=== PATIENT | female | born 1940 | race Hispanic/Latino ===

== ENCOUNTER 2018-11-10 17:28 | Inpatient (IN) | payer OTHER ==
[~2018-11-10] VITALS: Ht 149.9 cm; Wt 72.6 kg
[~2018-11-10 17:28] MED LIST: ALLEGRA PO; ASPIR 8181 MG PO; AZO CRANBERRY1 EAC1 PO; D3; HEMATINIC-VITA1 EACH PO; LASIX20 MG PO; LOPID600 MG PO; LORTAB 7.5-5001 EACH PO; METFORMIN HCL500 MG PO; OMEPRAZOLE40 MG OD; OXYBUTYNIN CHLO15 MG PO; POTASSIUM CHLO10 MEQ PO; SUPER B COMPLE150 MG PO; TYLENOL PO; VIACTIV SOFT C1 EACH PO; WELCHOL3.75 GM PO; ZESTRIL20 MG PO
[2018-11-10] MEDS ORDERED: SODIUM CHLORIDE 0.9% 1000ML 1,000 ML IV SCH (19:30)
--- NOTE | 2018-11-10 19:45 | NUR ---
RADIOLOGY AT BEDSIDE AT THIS TIME FOR CXR.
[2018-11-10 19:52] LABS: BASOPHILS % 0.1 % (0.0-1.0); EOSINOPHILS % 0.1 % (0.0-6.0); HEMATOCRIT 28.2 % (34.2-44.1); HEMOGLOBIN 9.7 g/dL (12.0-16.0); LYMPHOCYTES # (AUTO) 0.6 (1.0-3.2); LYMPHOCYTES % 3.7 % (18.0-39.1); MEAN CORPUSCULAR HEMOGLOBIN 27.4 pg (28-32); MEAN CORPUSCULAR HGB CONC 34.4 g/dL (31-35); MEAN CORPUSCULAR VOLUME 79.7 fL (81-99); MONOCYTES # (AUTO) 0.6 (0.2-0.8); MONOCYTES % 4.1 % (4.4-11.3); NEUTROPHILS # (AUTO) 14.4 (2.1-6.9); NEUTROPHILS % 91.4 % (38.7-80.0); PLATELET COUNT 198 x10e3/uL (140-360); RED BLOOD COUNT 3.54 x10e6/uL (3.6-5.1); RED CELL DISTRIBUTION WIDTH 14.6 % (11.7-14.4)
[2018-11-10 19:55] LABS: BILIRUBIN,URINE NEGATIVE (NEGATIVE); CLARITY,URINE SL CLOUDY (CLEAR); COLOR,URINE YELLOW (YELLOW); KETONES,URINE NEGATIVE (NEGATIVE); LEUKOCYTE ESTERASE ,URINE SMALL (NEGATIVE); NITRITE,URINE POSITIVE (NEGATIVE); PROTEIN,URINE DIPSTICK 2+ (NEGATIVE); URINE UROBILINOGEN 0.2 mg/dL (0.2 - 1)
[2018-11-10 20:06] LABS: AMORPHOUS SEDIMENT,URINE MODERATE (FEW); BACTERIA,URINE MANY /HPF
[2018-11-10 20:11] LABS: ALANINE AMINOTRANSFERASE 25 IU/L (0-55); ALBUMIN/GLOBULIN RATIO 0.7 (0.8-2.0); ALKALINE PHOSPHATASE 72 IU/L (40-150); ANION GAP 24.5 mmol/L (8-16); BLOOD UREA NITROGEN 52 mg/dL (7-26); BUN/CREATININE RATIO 25 (6-25); CALCIUM 9.7 mg/dL (8.4-10.2); CARBON DIOXIDE 15 mmol/L (22-29); CHLORIDE 89 mmol/L (98-107); CREATININE, SERUM 2.11 mg/dL (0.57-1.11); EST GLOMERULAR FILTRATION RATE 23 ML/MIN (60-); GLUCOSE 138 mg/dL (74-118); POTASSIUM 4.5 mmol/L (3.5-5.1); SODIUM 124 mmol/L (136-145)
--- NOTE | 2018-11-10 20:20 | Diagnostic Imaging Report ---
A single frontal view of the chest. HISTORY: Weakness, bladder infection, dysuria COMPARISON: None available. DISCUSSION: Portable technique, limits sensitivity of the exam. Tubes/Lines: None Lungs and pleura: Low lung volumes result in bibasilar vascular crowding, accentuation of the pulmonary interstitial markings, central pulmonary vasculature, and the cardiac silhouette. Allowing for these limitations, the findings are as follows: Mild retrocardiac atelectasis versus scarring. Mild prominence of the central peribronchial interstitial markings. No definite pleural effusion or pneumothorax is identified. Heart and mediastinum: The cardiomediastinal silhouette appears unremarkable. Bones and soft tissues: Marked narrowing of the right acromiohumeral interval. Partially visualized metallic cervical fixation hardware. IMPRESSION: 1. Left retrocardiac atelectasis versus scarring. Superimposed pneumonia or aspiration may be a consideration given the provided history. 2. Findings which can be seen in the setting of a nonspecific bronchitis. 3. Recommend short term follow up routine PA and lateral chest radiographs, in 6-8 weeks, to evaluate for resolution. Signed by: Dr. Ravi Chery D.O., M.M.M. on 11/10/2018 8:16 PM
[2018-11-10 20:34] LABS: CREATINE KINASE 575 IU/L (29-168)
[2018-11-10] MEDS ORDERED: ONDANSETRON HCL INJ 2MG/ML 2ML 2 MG/ML VIAL IV PRN (21:15)
[2018-11-10] MEDS ORDERED: DEXTROSE 50% SYRINGE 50 ML IV PRN ×2 (21:15)
--- OUTSIDE RECORDS SUMMARY | 2018-11-10 21:23 | XMS REPORT | Summary of Care ---
Author Author [facility] Outpatient Imaging [facility] Outpatient [facility] Address Unknown Phone Unavailable Encounter HQ Cesar_keshawn(FIN) [id number] Date(s): 09/08/18 - 09/08/18 [facility] [address] [facility], [address] [place] [phone] Discharge Disposition: Home or Self Care Attending Physician: Logan Gan MD Referring Physician: Logan Gan MD Vital Signs No data available for this section Problem List Condition Effective Dates Status Health Status Informant Anemia(Confirmed) Resolved Diabetes(Confirmed) Resolved GERD Resolved (gastroesophageal reflux disease)(Confirmed) HLD Resolved (hyperlipidemia)(Con firmed) HTN Resolved (hypertension)(Confi rmed) Hyponatremia(Confirm Resolved ed) Allergies, Adverse Reactions, Alerts Substance Reaction Severity Status cephalexin Active Cipro Active Medications No data available for this section Results No data available for this section Immunizations No data available for this section Procedures Procedure Date Related Diagnosis Body Site Status Abdominal hysterectomy Completed Cholecystectomy Completed Total knee replacement Completed Social History Social History Type Response Smoking Status Never smoker; Exposure to Tobacco Smoke None; Cigarette Smoking Last 365 Days No; Reg Smoking Cessation Counseling No entered on: 06/29/17 Assessment and Plan No data available for this section
--- OUTSIDE RECORDS SUMMARY | 2018-11-10 21:23 | XMS REPORT | Summary of Care ---
Author Author [facility] Organization [facility] Address Unknown Phone Unavailable Encounter SANDRO Mike(MORA) [id number] Date(s): 06/29/17 - 06/29/17 [facility] [address] [place] [address]- [phone] Encounter Diagnosis Encounter for screening for malignant neoplasm of colon (Final) - 07/03/17 Diverticulosis of large intestine without perforation or abscess without bleedin g (Final) - Essential (primary) hypertension (Final) - detention (current) use of oral hypoglycemic drugs (Final) - Chronic pain syndrome (Final) - Type 2 diabetes mellitus with diabetic polyneuropathy (Final) - Hyperlipidemia, unspecified (Final) - Rheumatic mitral stenosis (Final) - Gastro-esophageal reflux disease without esophagitis (Final) - detention (current) use of antithrombotics/antiplatelets (Final) - Discharge Disposition: Home or Self Care Attending Physician: Ravi Hodges MD Referring Physician: Ravi Hodges MD Vital Signs 1 2 3 Most recent to oldest [Reference Range]: 152.4 cm (06/26/17 1:28 PM) Height 131/53 mmHg (06/29/17 8:30 AM) 102/52 mmHg (06/29/17 8:15 AM) 105/57 mmHg (06/29/17 8:00 AM) Blood Pressure [90-140/60-90 mmHg] 20 BRMIN (06/29/17 8:30 AM) 17 BRMIN (06/29/17 8:15 AM) 14 BRMIN (06/29/17 8:00 AM) Respiratory Rate [14-20 BRMIN] 69.545 kg (06/26/17 1:28 PM) Weight 29.94 m2 (06/26/17 1:28 PM) Body Mass Index Problem List Condition Effective Dates Status Health Status Informant Anemia(Confirmed) Resolved Diabetes(Confirmed) Resolved GERD Resolved (gastroesophageal reflux disease)(Confirmed) HLD Resolved (hyperlipidemia)(Con firmed) HTN Resolved (hypertension)(Confi rmed) Hyponatremia(Confirm Resolved ed) Allergies, Adverse Reactions, Alerts Substance Reaction Severity Status cephalexin Active Cipro Active Medications acetaminophen 0 Refill(s) Start Date: 06/29/17 Status: Ordered amLODIPine PO, Daily, 0 Refill(s) Start Date: 06/29/17 Status: Ordered aspirin 0 Refill(s) Start Date: 06/29/17 Stop Date: 06/29/17 Status: Deleted aspirin 81 mg tablet, chewable 81 mg=1 tab, PO, Daily, tab, 0 Refill(s) Start Date: 06/29/17 Status: Ordered atorvastatin 10 mg oral tablet 10 mg=1 tab, PO, Bedtime, # 30 tab, 0 Refill(s) Start Date: 06/29/17 Status: Ordered Calcium 600+D oral tablet 1 tab, PO, BID, 0 Refill(s) Start Date: 06/29/17 Status: Ordered Cranberry oral capsule 0 Refill(s) Start Date: 06/29/17 Status: Ordered furosemide Daily, 0 Refill(s) Start Date: 06/29/17 Status: Ordered gemfibrozil 600 mg oral tablet 600 mg=1 tab, PO, BID, # 180 tab, 0 Refill(s) Start Date: 06/29/17 Status: Ordered glimepiride 2 mg oral tablet 2 mg=1 tab, PO, Breakfast, # 30 tab, 0 Refill(s) Start Date: 06/29/17 Status: Ordered lisinopril PO, Daily, 0 Refill(s) Start Date: 06/29/17 Status: Ordered metFORMIN 500 mg oral tablet 500 mg=1 tab, PO, Before Dinner, # 30 tab, 0 Refill(s) Start Date: 06/29/17 Status: Ordered [place]-3 oral capsule 0 Refill(s) Start Date: 06/29/17 Status: Ordered omeprazole PO, Daily, 0 Refill(s) Start Date: 06/29/17 Status: Ordered oxybutynin 15 mg oral tablet, extended release 15 mg=1 tab, PO, Daily, # 30 tab, 0 Refill(s) Start Date: 06/29/17 Status: Ordered potassium chloride 0 Refill(s) Start Date: 06/29/17 Status: Ordered Sodium Chloride 0.9% IV 1000 mL 1,000 mL, Rate: 25 ml/hr, Infuse over: 40 hr, Route: IV, Dosing Weight 69.545 kg , Total Volume: 1,000, Start date: 06/29/17 7:20:00 LIAISON ENGINEER, Duration: 30 day, Stop date: 07/29/17 7:19:00 CDT, 1.74, m2 Start Date: 06/29/17 Stop Date: 06/29/17 Status: Discontinued Vitamin B Complex oral capsule 1 tab, PO, Daily, # 30 cap, 0 Refill(s) Start Date: 06/29/17 Status: Ordered Results No data available for this section [...]
--- OUTSIDE RECORDS SUMMARY | 2018-11-10 21:23 | XMS REPORT ---
Author [facility] Address Unknown Phone Unavailable Care Team Providers Care Management Rep Name Role Phone Radha WYATT Unavailable Unavailable Problems This patient has no known problems. Allergies, Adverse Reactions, Alerts This patient has no known allergies or adverse reactions. Medications This patient has no known medications. Results Test Description Test Time Test Comments Text Results Atomic Results Result Comments CHEST SINGLE (PORTABLE) 2018-11-10 20:14:00 [place] [address] Patient Name: LIAT NANCE MR #: [id number] : 1940 Age/Sex: 78/F Req #: [id number] Adm Physician: Ordered by: SHAWNA FIGUEROA DAM OPERATOR Report #: [id number] Location: ER Room/Bed: Procedure: [id number] DX/CHEST SINGLE (PORTABLE) Exam Date: 11/10/18 Exam Time: 1939 REPORT STATUS: Signed A single frontal view of the chest. HISTORY: Weakness, bladder infection, dysuria COMPARISON: None available. DISCUSSION: Portable technique, limits sensitivity of the exam. Tubes/Lines: None Lungs and pleura: Low lung volumes result in bibasilar vascular crowding, accentuation of the pulmonary interstitial markings, central pulmonary vasculature, and the cardiac silhouette. Allowing for these limitations, the findings are as follows: Mild retrocardiac atelectasis versus scarring. Mild prominence of the central peribronchial interstitial markings. No definite pleural effusion or pneumothorax is identified. Heart and mediastinum: The cardiomediastinal silhouette appears unremarkable. Bones and soft tissues: Marked narrowing of the right acromiohumeral interval. Partially visualized metallic cervical fixation hardware. IMPRESSION: 1. Left retrocardiac atelectasis versus scarring. Superimposed pneumonia or aspiration may be a consideration given the provided history. 2. Findings which can be seen in the setting of a nonspecific bronchitis. 3. Recommend short term follow up routine PA and lateral chest radiographs, in 6-8 weeks, to evaluate for resolution. Signed by: Dr. Ravi Chery D.O., M.M.M. on 11/10/2018 8:16 PM Dictated By: RAVI CHEYR DO 15 Transcribed By: DAMIAN on 11/10/182015 COPY TO: SHAWNA FIGUEROA DAM OPERATOR SCR MAMM BILATERAL HARI CAD DIGITAL 2018-08-10 12:55:36 - SCR MAMM BILATERAL HARI CAD DIGITALBILATERAL DIGITAL SCREENING MAMMOGRAM 3D/2D WITH CAD: 08/10/2018CLINICAL: Asymptomatic. Digital breast tomosynthesis was performed in addition to routine CC and MLO views. Current mammographic images were evaluated by either a [employer] M-Vu or a [employer] ImageChecker CAD (computer aided detection system). Comparison is made to exams dated 05/25/2017 mammogram, 03/10 mammogram, and 03/08/2015 mammogram - [facility]-. The tissue of both breasts is predominantly fatty. There are benign calcifications in both breasts. There also is a benign density in the right breast. No suspicious mass, architectural distortion, malignant type calcification, or lymph node abnormality detected. Breast architecture is stable compared to prior exams.IMPRESSION: BENIGNThere is no mammographic evidence of malignancy. Resume annual screening mammography in one year. Alirio Crump M.D. ss/penrad:08/10/2018 12:55:36 Field Sales Manager: Mindi Alvarez , [facility]-letter sent: BIRADS 1-2 Normal Mammogram BI-RADS: 2 Benign
--- OUTSIDE RECORDS SUMMARY | 2018-11-10 21:23 | XMS REPORT | Continuity of Care Document ---
Author Author [employer] Organization [employer] Address Unknown Phone Unavailable Care Team Providers Care [place] Program Technician Name Role Phone [employer] Unavailable Unavailable Problems Problem Status Onset Date Classification Date Reported Comments Source Encounter for screening for malignant neoplasm of colon 07/04/2017 10/05/2017 [facility] UNK Active 06/22/2017 [facility] Z12.11 Active 06/22/2017 [facility] 722.0 - CERVICAL DISC D Active 04/28/2012 [facility] Leonardo Diverticulosis of large intestine without perforation or abscess without bleeding 10/05/2017 [facility] Essential hypertension 10/05/2017 [facility]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 10/05/2017 [facility] Chronic pain syndrome 10/05/2017 [facility] Type 2 diabetes mellitus with diabetic polyneuropathy 10/05/2017 [facility] Hyperlipidemia, unspecified 10/05/2017 [facility] Rheumatic mitral stenosis 10/05/2017 [facility] Gastro-esophageal reflux disease without esophagitis 10/05/2017 [facility] prison use of antithrombotics/antiplatelets 10/05/2017 [facility] Anemia Resolved Problem 09/11/2018 [facility] [place] Diabetes Resolved Problem 09/11/2018 [facility] OPID [place] GERD (<span ID="[id number]">Confirmed</span>) Resolved Problem 09/11/2018 [facility] [place] HLD (<span ID="[id number]">Confirmed</span>) Resolved Problem 09/11/2018 [facility] [place] HTN (<span ID="[id number]">Confirmed</span>) Resolved Problem 09/11/2018 [facility] [place] Hyponatremia Resolved Problem 09/11/2018 [facility] [place] Medications Medication Details Route Status Patient Instructions Ordering Provider Order Date Source Metformin hydrochloride 500 MG Oral Tablet 500 mg=1 tab, PO, Before Dinner, # 30 tab, 0 Refill(s) Active 06/29/2017 [facility] glimepiride 2 mg oral tablet 2 mg=1 tab, PO, Breakfast, # 30 tab, 0 Refill(s) Active 06/29/2017 [facility] [place]-3 oral capsule 0 Refill(s) Active 06/29/2017 [facility] atorvastatin 10 mg oral tablet 10 mg=1 tab, PO, Bedtime, # 30 tab, 0 Refill(s) Active 06/29/2017 [facility] gemfibrozil 600 mg oral tablet 600 mg=1 tab, PO, BID, # 180 tab, 0 Refill(s) Active 06/29/2017 [facility] oxybutynin 15 mg oral tablet, extended release 15 mg=1 tab, PO, Daily, # 30 tab, 0 Refill(s) Active 06/29/2017 [facility] Vitamin B Complex oral capsule 1 tab, PO, Daily, # 30 cap, 0 Refill(s) Active 06/29/2017 [facility] Cranberry oral capsule 0 Refill(s) Active 06/29/2017 [facility] Calcium 600+D oral tablet 1 tab, PO, BID, 0 Refill(s) Active 06/29/2017 [facility] Aspirin 81 MG Chewable Tablet 81 mg=1 tab, PO, Daily, tab, 0 Refill(s) Active 06/29/2017 [facility] Aspirin 0 Refill(s) Inactive 06/29/2017 [facility] Acetaminophen 0 Refill(s) Active 06/29/2017 [facility] Potassium Chloride 0 Refill(s) Active 06/29/2017 [facility] Lisinopril PO, Daily, 0 Refill(s) Active 06/29/2017 [facility] Furosemide Daily, 0 Refill(s) Active 06/29/2017 [facility] Amlodipine PO, Daily, 0 Refill(s) Active 06/29/2017 [facility] Omeprazole PO, Daily, 0 Refill(s) Active 06/29/2017 [facility] Sodium Chloride 0.9% IV 1000 mL 1,000 mL, Rate: 25 ml/hr, Infuse over: 40 hr, Route: IV, Dosing Weight 69.545 kg, Total Volume: 1,000, Start date: 06/29/17 7:20:00 BOX STAMPER, Duration: 30 day, Stop date: 07/29/17 7:19:00 CDT, 1.74, m2 Inactive 06/29/2017 [facility] Allergies, Adverse Reactions, Alerts Substance Category Reaction Severity Reaction type Status Date Reported Comments Source cephalexin Assertion Drug allergy Active [facility] [place] Cipro Assertion Drug allergy Active [facility] Immunizations Results Pathology Reports Diagnostic Reports Report Value Date Source Chest 2 views DX EXAM: XR CHEST 2 VIEWS DATE: 09/08/2018 10:22 CDT INDICATION: - J20.8 Acute bronchitis due to other specified organisms COMPARISON: 11/07/2008 TECHNIQUE: PA and lateral chest radiographs FINDINGS: Areas of linear scarring or subsegmental atelectasis are seen in the left lower lung, increased from the prior exam. No consolidations are seen. No pleural abnormalities are noted.. [place] and pulmonary vasculature are normal. Cardiomediastinal silhouette is normal in appearance. No acute bony abnormality is identified. Multilevel spondylosis is seen in the thoracic spine. Diffuse osteopenia is present. Cervical spine AICD fusion hardware is visualized at C5- C7. There is narrowing of the right acromiohumeral distance suggestive of superior humeral subluxation and possible rotator cuff. IMPRESSION: 1. Linear scarring or subsegmental atelectasis in the left lower lung, increased from the prior exam of 11/07/2008. No consolidations are seen to suggest pneumonia. 2. Degenerative changes in the spine with ACDF fusion hardware in the inferior cervical spine. 3. Superior subluxation of the right humeral head is suggestive of chronic rotator cuff tear. Clinical correlation is recommended. 09/08/2018 [facility] Consultation Notes Discharge Summaries History and Physicals Vital Signs Vital Sign Value Date Comments Source Respitory Rate 20 06/29/2017 [facility] Systolic (mm Hg) 131 06/29/2017 [facility] Diastolic (mm Hg) 53 06/29/2017 [facility] Systolic (mm Hg) 102 06/29/2017 [facility] Diastolic (mm Hg) 52 06/29/2017 [facility] Respitory Rate 17 06/29/2017 [facility] Systolic (mm Hg) 105 06/29/2017 [facility] Diastolic (mm Hg) 57 06/29/2017 [facility] Respitory Rate 14 06/29/2017 [facility] Weight 69.545 06/26/2017 [facility] BMI Calculated 29.94 06/26/2017 [facility] Height 152.4 cm 06/26/2017 [facility] Encounters Location Location Details Encounter Type Encounter Number Reason For Visit Attending Provider ADM Date DC Date Status Source OD [id number] 722.0 - CERVICAL DISC D JOSH MCKEONMIKEY 04/28/2012 Active JAKOB Vera [facility] Bedded Outpatient [id number] Ravi Hodges 06/29/2017 06/29/2017 [facility] Outpatient Imaging - [place] [facility] [id number] Logan Gan 09/08/2018 [facility] [place] Procedures Procedure Code Date Perfomer Comments Source Abdominal hysterectomy [id number] [facility] Cholecystectomy [id number] [facility] Total knee replacement [id number] [facility] Abdominal hysterectomy [id number] [facility] Cholecystectomy [id number] [facility] Total knee [facility] [id number] [facility] [place] Plan of Care Social History Social History Date Source Social History TypeResponse Smoking Status Never smoker ; Exposure to Tobacco Smoke None; Cigarette Smoking Last 365 Days No; Reg Smoking Cessation Counseling No entered on: 06/29/17 06/29/2017 [facility] Social History TypeResponse Smoking Status Never smoker ; Exposure to Tobacco Smoke None; Cigarette Smoking Last 365 Days No; Reg Smoking Cessation Counseling No entered on: 06/29/17 06/29/2017 [facility] [place] Family History Advance Directives Functional Status
[2018-11-10] MEDS ORDERED: CEFTRIAXONE SOD 1 GM/NS 50 ML 50 ML IV SCH (21:30)
[2018-11-10] MEDS: SODIUM CHLORIDE 0.9% 1000ML 1,000 ML IV SCH (22:10)
--- NOTE | 2018-11-10 23:00 | NUR ---
Admitted to room 201 via stretcher. Alert and orient to name and hospital. Sleepy with hallucinations. Family at bedside. Skin warm and dry. Dx: chronic anemia,dehydration, hyponatremia, UTI, dehydration. Oral mucosa pink and moist. Dry oral mucosa, furrowed tongue. Pt c/o x4 days loose stools. Denies SOB. Lungs sounds diminished. c/o chronic bilateral ankle pain upon movement. Wears diaper, urinary dribbling. +2 bilateral hand roof fixer. Cap refill immediate. Oriented to room. Call delaney within reach. Bed low and locked. Will continue to monitor.
[2018-11-10 23:30] VITALS: BP 126/59
[2018-11-11] VITALS (7 sets, daily range): BP systolic 108–126; BP diastolic 52–60
--- NOTE | 2018-11-11 | NUR ---
Call Dr. Hoyt for Temp 101, no answer. Admin 8oz water. Removed layers of blankets. Call delaney within reach. Will continue to monitor.
[2018-11-11] MEDS ORDERED: ACETAMINOPHEN 325 MG TAB PO PRN (01:30)
[2018-11-11 05:07] LABS: BASOPHILS % 0.2 % (0.0-1.0); EOSINOPHILS # (AUTO) 0.1 (0.0-0.4); EOSINOPHILS % 0.4 % (0.0-6.0); HEMOGLOBIN 7.9 g/dL (12.0-16.0); LYMPHOCYTES # (AUTO) 0.6 (1.0-3.2); LYMPHOCYTES % 4.7 % (18.0-39.1); MEAN CORPUSCULAR HEMOGLOBIN 27.1 pg (28-32); MEAN CORPUSCULAR HGB CONC 34.3 g/dL (31-35); MONOCYTES # (AUTO) 0.8 (0.2-0.8); MONOCYTES % 6.6 % (4.4-11.3); NEUTROPHILS % 87.6 % (38.7-80.0); PLATELET COUNT 183 x10e3/uL (140-360); RED BLOOD COUNT 2.91 x10e6/uL (3.6-5.1); RED CELL DISTRIBUTION WIDTH 14.8 % (11.7-14.4)
[2018-11-11 05:33] LABS: ALBUMIN 2.2 g/dL (3.5-5.0); ALBUMIN/GLOBULIN RATIO 0.6 (0.8-2.0); ANION GAP 17.4 mmol/L (8-16); CREATININE, SERUM 1.78 mg/dL (0.57-1.11); POTASSIUM 4.4 mmol/L (3.5-5.1)
[2018-11-11 06:16] LABS: CALCIUM 8.3 mg/dL (8.4-10.2)
--- NOTE | 2018-11-11 06:30 | NUR ---
Spoke with Remigio Jaime regarding abnormal labs: Hgb 7.9. No new orders given. Dr will check on Pt with today visit.
--- NOTE | 2018-11-11 07:14 | NUR ---
pt asleep Resp even unlabored, no distress noted, pt easily aroused to name, pt has no c/o pain when asked, pt able to make needs known, no confusion family at bedside, call light in reach.
[2018-11-11] MEDS ORDERED: INSULIN REGULAR, HUMAN 100 UNIT/1 ML 3ML VIAL SQ SCH (07:30)
[2018-11-11] MEDS: INSULIN REGULAR, HUMAN 100 UNIT/1 ML 3ML VIAL SQ SCH ×4 (07:30→22:01)
[2018-11-11] MEDS: SODIUM CHLORIDE 0.9% 1000ML 1,000 ML IV SCH ×2 (09:04→14:27)
[2018-11-11] MEDS ORDERED: [UNRECOGNIZED DRUG - OTHER] PO SCH (09:30)
[2018-11-11] MEDS ORDERED: VITAMIN B COMP W C PO SCH (09:30)
[2018-11-11] MEDS ORDERED: AZITHROMYCIN 500MG/NS 250 ML 250 ML IV ONE (09:30)
[2018-11-11] MEDS ORDERED: IRON PO SCH (09:30)
[2018-11-11 10:33] LABS: THYROID STIMULATING HORMONE 1.94 uIU/mL (0.350-4.940)
[2018-11-11] MEDS: HYDROCODONE/APAP 7.5MG-325MG 1 EA TAB PO SCH ×2 (12:17→16:53)
--- NOTE | 2018-11-11 13:02 | Diagnostic Imaging Report ---
EXAMINATION: CT of the chest, abdomen and pelvis without contrast. TECHNIQUE: Spiral CT images of the chest, abdomen and pelvis were performed from the lung apices to the lesser trochanters without IV or oral contrast material. Coronal and sagittal reformatted images were obtained. Technique modification was accomplished maintain the lowest dose possible to the patient. DLP: 856.70 mGy-cm COMPARISON: None. CLINICAL HISTORY:Anemia DISCUSSION: CHEST: LINES/TUBES: None. LUNGS AND AIRWAYS: Bilateral airspace opacities in the lower lobes likely secondary to atelectasis although infiltrate could appear similar. PLEURA: The pleural spaces are clear. HEART AND MEDIASTINUM: The thyroid gland is normal. The heart and pericardium are within normal limits. Aortic, coronary artery and mitral annulus calcification is noted. LYMPH NODES: No significant mediastinal, hilar or axillary lymphadenopathy is seen. BONES AND SOFT TISSUES: Orthopedic plate overlies the lower cervical spine. Degenerative changes of the lower thoracic and upper lumbar spine. No soft tissue abnormalities. ABDOMEN/PELVIS: HEPATOBILIARY:No focal hepatic lesions. No biliary ductal dilation. The gallbladder is not visualized. SPLEEN: No splenomegaly. PANCREAS: No focal masses or ductal dilatation. ADRENALS: No adrenal nodules. KIDNEYS/URETERS: No hydronephrosis or stones. Several contour abnormalities are suggestive of renal cysts with one noted in the posterior cortex of the lower pole of the left kidney measuring 2.9 cm. Contour abnormality of the anterior upper right renal cortex is suggestive of a mass. CT renal mass protocol or ultrasound is recommended for further evaluation of the renal lesions. PELVIC ORGANS/BLADDER: The bladder is normal. PERITONEUM/RETROPERITONEUM: No free air or fluid. LYMPH NODES: No intra-abdominal,retroperitoneal, pelvic or inguinal lymphadenopathy. VESSELS: There is vascular calcification. GI TRACT: No distention or wall thickening. BONES AND SOFT TISSUES: Orthopedic hardware within the lower lumbar spine within L4 and L5. No soft tissue abnormalities. IMPRESSION: 1. Indeterminant findings involving the kidneys suggestive of cysts and/or mass. 2. Further evaluation with renal mass protocol CT is recommended if possible. 3. Bilateral lower lobe airspace opacities. 4. Diffuse atherosclerotic vascular and valvular calcification. Signed by: Dr. Young Treviño DO on 11/11/2018 12:58 PM
[2018-11-11] MEDS: CEFTRIAXONE SOD 1 GM/NS 50 ML 50 ML IV SCH (14:56)
--- NOTE | 2018-11-11 15:13 | History and Physical ---
PRIMARY CARE PHYSICIAN: Logan Gan MD. PACKAGING CLERK: Rajat Solomon MD. CHIEF COMPLAINT: Anemia, weakness, acute kidney injury, hyponatremia. HISTORY: A 78-year-old female, came to see primary care physician, Dr. Logan Gan, and apparently had some blood work done, blood work was abnormal, and the patient was sent to the emergency room. The patient has been doing quite a bit of things at home and she is stating that she has not been drinking enough water and she is dehydrated. The patient was otherwise stable. She has no chest pain and no shortness of breath. The patient has no abdominal pain. The patient is otherwise stable. PAST MEDICAL HISTORY: Diabetes type 2, recurrent urinary tract infection, chronic anemia, hypertension, dyslipidemia. PAST SURGICAL HISTORY: C-spine surgery, cholecystectomy, appendectomy, hysterectomy, left knee replacement. SOCIAL HISTORY: The patient does not smoke or use alcohol. No recreational drug use. She lives with her . ALLERGIES: TO CIPRO. HOME MEDICATIONS: List is reviewed. REVIEW OF SYSTEMS: As mentioned above. PHYSICAL EXAMINATION: VITAL SIGNS: Temperature is 98, blood pressure 108/52, pulse rate is 98, respirations 20. GENERAL: The patient is not in acute distress. She is awake. HEENT: Normocephalic, atraumatic. Anicteric. NECK: Supple grossly. PULMONARY: Diminished breath sounds. CARDIOVASCULAR: Regular rate and rhythm. ABDOMEN: Soft, nondistention, slightly obese. EXTREMITIES: No cyanosis or edema. NEUROLOGIC: No gross focal deficit. LABORATORY DATA: WBC is 15.7, hemoglobin 9.7, hematocrit 28, platelet is 198. Chemistry; sodium is 124, potassium is 4.5, chloride 89, bicarb 15, BUN is 52, creatinine 2.1, glucose is 138. Creatine kinase is 575. IMPRESSION: 1. Acute kidney injury on possible chronic kidney disease. The patient was taking Lasix at home. 2. Urinary tract infection with wbc of 6-10 and many bacteria. 3. Generalized weakness. 4. Chronic anemia. 5. Abnormal chest x-ray, possible pneumonia. 6. Hyponatremia secondary to the above most likely. PLAN: B12, folic acid. Fecal occult blood. Consultation with Dr. Rajat Solomon. CT chest, abdomen and pelvis without IV contrast. Rocephin and azithromycin. TSH. Iron profile. We will monitor the patient closely. We will check the urine osmol, random urine sodium and serum osmol as well. We will continue to monitor the patient's leukocytosis and anemia. MD ANTOINE Alvarez/PARVIN /[id number]
--- NOTE | 2018-11-11 19:05 | NUR ---
Completed bedside nursing with morning nurse. Pt alert to name. Lying in bed HOB 45 degrees. Denies pain at this time. Family at bedside. Call delaney within reach. Will continue to monitor.
[2018-11-12] VITALS: BP 95/49
[2018-11-12] MEDS: SODIUM CHLORIDE 0.9% 1000ML 1,000 ML IV SCH (01:00)
[2018-11-12] MEDS: CEFTRIAXONE SOD 1 GM/NS 50 ML 50 ML IV SCH (02:00)
[2018-11-12 05:23] LABS: BASOPHILS % 0.3 % (0.0-1.0); EOSINOPHILS # (AUTO) 0.2 (0.0-0.4); EOSINOPHILS % 1.9 % (0.0-6.0); HEMATOCRIT 23.7 % (34.2-44.1); LYMPHOCYTES % 8.9 % (18.0-39.1); MEAN CORPUSCULAR HEMOGLOBIN 27.2 pg (28-32); MEAN CORPUSCULAR HGB CONC 33.8 g/dL (31-35); MEAN CORPUSCULAR VOLUME 80.6 fL (81-99); MONOCYTES % 8.3 % (4.4-11.3); NEUTROPHILS # (AUTO) 9.3 (2.1-6.9); NEUTROPHILS % 79.6 % (38.7-80.0); PLATELET COUNT 213 x10e3/uL (140-360); RED BLOOD COUNT 2.94 x10e6/uL (3.6-5.1); RED CELL DISTRIBUTION WIDTH 15.8 % (11.7-14.4)
[2018-11-12 05:41] LABS: ANION GAP 16.9 mmol/L (8-16); CREATININE, SERUM 1.69 mg/dL (0.57-1.11); POTASSIUM 3.9 mmol/L (3.5-5.1)
[2018-11-12] MEDS: HYDROCODONE/APAP 7.5MG-325MG 1 EA TAB PO SCH ×4 (06:00→18:00)
--- NOTE | 2018-11-12 07:00 | NUR ---
RCD PT AT BED PT IS ALERT AND ORIENTED PT RESTING ON BED NO SIGNS OF ANY DISTRESS NOTED IV PATENT FAMILY AT BED SIDE BED LOW AND LOCKED CALL LIGHT IN REACH
[2018-11-12] MEDS: INSULIN REGULAR, HUMAN 100 UNIT/1 ML 3ML VIAL SQ SCH ×4 (07:30→20:58)
[2018-11-12 07:36] VITALS: BP 124/59
[2018-11-12 08:50] VITALS: BP 124/59
[2018-11-12] MEDS: IRON-VITAMIN-MINERAL CAPSULE PO SCH (09:00)
[2018-11-12] MEDS ORDERED: AZITHROMYCIN 250MG/NS 100 ML 100 ML IV SCH (09:00)
[2018-11-12] MEDS: ASPIRIN 81 MG CHEW TAB PO SCH (09:00)
[2018-11-12] MEDS: PANTOPRAZOLE SOD 40 MG TABEC PO SCH (09:00)
[2018-11-12] MEDS: OXYBUTYNIN CHLORIDE 5 MG TAB PO SCH (09:00)
[2018-11-12] MEDS ORDERED: AZITHROMYCIN 250 MG TAB PO SCH (10:04)
[2018-11-12] MEDS ORDERED: SODIUM BICARBONATE 8.4% INJ 50 ML SYR IV ONE (11:00)
[2018-11-12 11:37] VITALS: BP 112/58
[2018-11-12] MEDS ORDERED: SODIUM BICARBONATE 8.4% 150 ML in STERILE WATER IV SOLN 1,000 ML IV ONE (12:00)
--- NOTE | 2018-11-12 12:07 | Diagnostic Imaging Report ---
EXAMINATION: Renal ultrasound. CLINICAL HISTORY :Concern for renal mass COMPARISON: CT abdomen and pelvis 11/11/2018 TECHNIQUE: Grayscale and color Doppler evaluation of the kidneys and bladder was performed in transverse and longitudinal planes. DISCUSSION: RIGHT KIDNEY: The right kidney measures 10.8 cm in length and shows normal renal cortical echogenicity. Calcification is identified in the lower pole corresponding to finding on CT. Additional right renal lesions described on the comparison CT are not identified by ultrasound. LEFT KIDNEY: The left kidney measures 10.6 cm in length and shows normal renal cortical echogenicity. Exophytic lesion projecting from the upper pole is anechoic with posterior acoustic enhancement compatible with a simple cyst measuring 3.2 x 2.9 x 2.8 cm.. BLADDER: Unremarkable. Right and left ureteral jets are identified. IMPRESSION: Exophytic left upper pole lesion described on comparison CT is shown to represent a simple cyst. Right upper pole contour abnormality described on the comparison CT is not visualized by sonography. As previously recommended, CT or MRI of the abdomen with and without contrast (renal mass protocol) is suggested for further evaluation. Signed by: Dr. Bob Danielson M.D. on 11/12/2018 12:04 PM
[2018-11-12] MEDS ORDERED: ONDANSETRON HCL 4 MG ORAL DISINTEGRATING TAB PO PRN (13:15)
[2018-11-12] MEDS ORDERED: MEROPENEM 500MG/ NS 50ML 500 MG in MEROPENEM 500MG/ NS 50ML 50 ML IV SCH (14:30)
[2018-11-12] MEDS: MEROPENEM 500MG/ NS 50ML 50 ML IV SCH (14:45)
[2018-11-12 15:34] VITALS: BP 114/55
--- NOTE | 2018-11-12 16:29 | Consultation ---
DATE OF CONSULTATION: 11/12/2018 Renal Consultation REASON FOR CONSULTATION: Acute kidney injury, hyponatremia and acidosis. HISTORY OF PRESENT ILLNESS: A 78-year-old female with a history of diabetes and hypertension, who presented to her primary care physician with weakness and cloudy urine. The patient was told she needed to go to the emergency room after her blood work was received. In the emergency room, the patient was found to have pyuria, acute kidney injury, hyponatremia, was admitted and Nephrology consultation was called. The patient denies taking any [id number]-[id number] medications including NSAIDs. REVIEW OF SYSTEMS: A 14-point review of systems completed. All systems negative other than in the HPI. PAST MEDICAL HISTORY: 1. Diabetes type 2. 2. Hypertension. 3. Neuropathy. 4. Dyslipidemia. 5. Recurrent urinary tract infections. PAST SURGICAL HISTORY: 1. Cholecystectomy. 2. Appendectomy. 3. Hysterectomy. 4. C-spine surgery. 5. Knee replacement. SOCIAL HISTORY: No tobacco. No alcohol. No IV drugs. FAMILY HISTORY: No family history of kidney disease. ALLERGIES: CIPRO. MEDICATIONS: See list. PHYSICAL EXAMINATION: VITALS: Blood pressure 124/59, pulse 94, respiratory rate 15, temperature 99.8. GENERAL: No apparent distress. HEENT: Oropharynx clear. No scleral icterus. No peripheral edema. NECK: Supple. No elevation in jugular venous pressure. No lymphadenopathy. CHEST: Clear to auscultation anteriorly bilaterally. CARDIOVASCULAR : Regular rhythm. No murmurs, rubs, or gallops. ABDOMEN: Soft. Positive bowel sounds. No tenderness. No rebound. EXTREMITIES: Trace edema. No clubbing or cyanosis. SKIN: Warm. No rashes. IMAGING DATA: Chest x-ray; lung pringle clear. CT abdomen and pelvis without contrast shows no hydronephrosis or stones. Possible renal cysts, one in the left kidney measuring 2.9 cm. Contour abnormality of the anterior upper right renal cortex suggestive of a mass. CT of the chest; bilateral lower lobe airspace opacities. LABORATORY DATA: Sodium 130, was 124 on 11/10/2018 to 127 11/11/2018, potassium 3.9, chloride 104, CO2 13, BUN 45, creatinine 1.69 was 2.11, glucose 115, calcium 8, anion gap 13. White count 11.62, hemoglobin 8, hematocrit 23.7, platelets 213. Urine cloudy, 2+ protein, positive nitrites, 6-10 WBCs, 6-10 RBCs. ASSESSMENT AND PLAN: 1. Acute kidney injury secondary to acute tubular necrosis from sepsis and urinary tract infection. The patient with E coli. Continue current antibiotics. We will need to avoid all nephrotoxic medications. 2. Possible renal mass. We will do renal ultrasound and followup. May need Urology evaluation. 3. Hyponatremia, improving appropriately. We will place patient on fluid restriction. 4. Edematous on exam. We will decrease IV fluids. 5. Metabolic acidosis secondary to sepsis. We will add bicarbonate to IV fluids for 1 L. 6. Diabetes per primary team. 7. Urinary tract infection, E coli. Continue current antibiotics. MD AUGUSTO Castaneda/MODL /[id number]
--- NOTE | 2018-11-12 18:42 | NUR ---
PT RESTING ON BED BED SIDE REPORT GIVEN TO ONCOMING NURSE
[2018-11-12 19:57] VITALS: BP 117/56
[2018-11-12 21:10] LABS: CREATININE,URINE RANDOM 73.08 mg/dL (47-110)
--- NOTE | 2018-11-12 21:36 | Consultation ---
DATE OF CONSULTATION: 11/12/2018 REASON FOR CONSULTATION: Sepsis, bacteremia, gram-negative Thank you so much for seeing this patient. HISTORY OF PRESENT ILLNESS: This patient is a very pleasant 78-year-old female, who has history of diabetes mellitus, history of UTI a long time ago, chronic anemia, hypertension, obesity, dyslipidemia, and past surgical history of C-spine surgery, cholecystectomy, appendectomy, hysterectomy, and left total knee replacement. The patient comes in with fever and chills and not feeling well. Apparently, she went to see her physician. The blood test showed an elevated white count. She came to the emergency room where she was admitted. The blood culture was sent and started IV fluid. The patient is showing gram-negative rods, so I am asked to see her at the present time. The patient tells me since she came here, she is feeling better. At the present time, the patient has no other complaints and tells that she is feeling better, but she does agree that she has UTI. PAST MEDICAL HISTORY: Diabetes mellitus type 2, UTI before, recurrent anemia, hypertension, and hyperlipidemia. PAST SURGICAL HISTORY: C-spine surgery, cholecystectomy, appendectomy, hysterectomy, and left total knee replacement. ALLERGIES: NKDA. SOCIAL HISTORY: There is no smoking, drug abuse, or alcohol abuse. FAMILY HISTORY: Otherwise unremarkable. MEDICATIONS: The patient was started on Rocephin and azithromycin. She is on Spencer. REVIEW OF SYSTEMS: HEENT: Negative. PULMONARY: Negative CARDIAC: Negative. : Negative. SKIN: There is no rash. JOINT: Negative. LABORATORY DATA: When she first came, white count was 15.77 and hemoglobin 9.7. Her sodium 130, potassium 3.9, her creatinine 1.69, and her glucose of 237. Her platelet count was 213. Lactic acid was 15. Calcium 8. Liver enzyme within normal limit. CK was 175. The patient had a renal ultrasound which showed left upper lobe lesion described on the CAT scan showing simple cyst. CAT scan of the abdomen and pelvis showed that she had a simple cyst. PHYSICAL EXAMINATION: GENERAL: She is currently alert, oriented, does not seem to be in acute distress. VITAL SIGNS: Stable currently. Afebrile. HEENT: Normocephalic. Does not appear icteric. NECK: Supple. CHEST: Clear bilaterally. HEART: S1, S2. No S3, S4, or murmur. ABDOMEN: Soft. Bowel sounds present. No tenderness. EXTREMITIES: No edema. SKIN: There is no rash. IMPRESSION: 1. Sepsis, gram-negative. Source is pyelonephritis. We will put her on meropenem. We will modify after availability of blood culture and sensitivity. 2. Chronic kidney disease from history of recurrent urinary tract infection. 3. We will follow with you. Further recommendations to follow. MD MIRELA Pate/MODL /[id number]
[2018-11-13] VITALS (7 sets, daily range): BP systolic 112–135; BP diastolic 56–62
[2018-11-13] MEDS: MEROPENEM 500MG/ NS 50ML 50 ML IV SCH ×2 (02:53→14:45)
[2018-11-13 05:29] LABS: BASOPHILS % 0.2 % (0.0-1.0); EOSINOPHILS # (AUTO) 0.3 (0.0-0.4); EOSINOPHILS % 2.6 % (0.0-6.0); HEMOGLOBIN 7.6 g/dL (12.0-16.0); LYMPHOCYTES % 8.5 % (18.0-39.1); MEAN CORPUSCULAR HEMOGLOBIN 27.5 pg (28-32); MEAN CORPUSCULAR HGB CONC 33.5 g/dL (31-35); MEAN CORPUSCULAR VOLUME 82.2 fL (81-99); MONOCYTES # (AUTO) 0.9 (0.2-0.8); NEUTROPHILS # (AUTO) 8.8 (2.1-6.9); NEUTROPHILS % 78.4 % (38.7-80.0); PLATELET COUNT 266 x10e3/uL (140-360); RED BLOOD COUNT 2.76 x10e6/uL (3.6-5.1); RED CELL DISTRIBUTION WIDTH 16.1 % (11.7-14.4)
[2018-11-13 05:35] LABS: HEMATOCRIT 22.7 % (34.2-44.1)
[2018-11-13 05:43] LABS: ANION GAP 16.7 mmol/L (8-16); CALCIUM 7.8 mg/dL (8.4-10.2); CREATININE, SERUM 1.51 mg/dL (0.57-1.11); POTASSIUM 3.7 mmol/L (3.5-5.1)
[2018-11-13] MEDS: HYDROCODONE/APAP 7.5MG-325MG 1 EA TAB PO SCH ×4 (05:44→17:31)
[2018-11-13] MEDS: INSULIN REGULAR, HUMAN 100 UNIT/1 ML 3ML VIAL SQ SCH ×4 (07:30→20:11)
--- NOTE | 2018-11-13 07:30 | NUR ---
Report given to dayshift RN at this time. Pt resting comfortably in bed. Call light is in reach and daughter is at bedside.
--- NOTE | 2018-11-13 08:00 | NUR ---
Patient alert and responsive, no resp distress, daughter by bedside and able to make needs known, VSS and pains well managed on current scheduled regimen. Patient had a BM this morning, will monitor as call light within reach
[2018-11-13] MEDS ORDERED: AZITHROMYCIN 250 MG TAB PO SCH (09:00)
[2018-11-13 09:03] LABS: EOSINOPHILS % (MANUAL) 1 % (0-7); LYMPHOCYTES % (MANUAL) 8 % (19-48); MONOCYTES % (MANUAL) 6 % (3.4-9.0); NEUTROPHILS % (MANUAL) 83 % (40-74); PLASMA CELLS %(MANUAL) 1; PLATELET ESTIMATE ADEQUATE; PLATELET MORPHOLOGY COMMENT NORMAL; RBC MORPHOLOGY COMMENT NORMAL; TOXIC GRANULATION SLIGHT
[2018-11-13] MEDS: OXYBUTYNIN CHLORIDE 5 MG TAB PO SCH (09:19)
[2018-11-13] MEDS: ASPIRIN 81 MG CHEW TAB PO SCH (09:19)
[2018-11-13] MEDS: PANTOPRAZOLE SOD 40 MG TABEC PO SCH (09:19)
--- NOTE | 2018-11-13 13:55 | NUR ---
Rounds by Dr. Dobbins and orders in place for BMP and CBC and mag level
[2018-11-13] MEDS: CEFAZOLIN SOD 1 GM/NS 50ML 50 ML IV SCH (16:00)
--- NOTE | 2018-11-13 17:32 | NUR ---
Nutrition Screen Note RD Recommendation for Physician: 1.Continue with ADA diet Plan of Care: RD following, monitoring for tolerance and adequacy Nutrition reason for involvement: Nutrition Risk Trigger Primary Diagnose(s): Chronic Anemia , Dehydration, Hyponatremia PMH: Diabetes Type 2 , Anemia, HTN, Dyslipidemia Ht: 59 in Wt: 160lbs BMI:32.3 kg/m2 IBW: 98 lb +/- 10% RD Assessment: (11/13) Chart reviewed. Labs and meds reviewed. Pt is a 78 y/o F who has history of diabetes mellitus, chronic anemia, hypertension, dyslipidemia. Admitted for not feeling well, laboratory values showed elevated WBC count, low Hgb. Per pt, is feeling better at present time. Reports good appetite and dietary at home. Per pt taking care of , noted increased stress level that often requires her not focusing on her own health. Noted often times skipping meals. Pt denies any N/V/D/C and difficulties with chewing or swallowing. No change in bowel movements. Will continue to monitor as needed. Current Diet: ADA diet Malnutrition Evaluation (11/13) The patient does not meet criteria for a specified degree of malnutrition at this time. Will re-evaluate at follow-up as appropriate. Diet Education Needs Assessment: Diet education not indicated. Nutrition Care Level: Low Signed: Yeni Santos, MS, RDN, LD
--- NOTE | 2018-11-13 18:23 | NUR ---
Patient alert and responsive, OOB and ambulated with PT, sat on recliner for about 4-5 hours and then assisted back to bed, voiding in B/R with assistance, tolerated IV fluids, orders for new set of blood cultures per ID, will monitor as call light within reach. Patient still presenting with some confusion but will monitor.
--- NOTE | 2018-11-13 20:24 | NUR ---
Pt repositioned in bed at this time, lying supine. pt in no resp distress. Bed is in low locked position with call light in reach. Family at bedside.
[2018-11-13] MEDS ORDERED: SODIUM CHLORIDE 0.9% 250ML 250 ML ONE (23:58)
[2018-11-14] VITALS (8 sets, daily range): BP systolic 127–163; BP diastolic 59–75
[2018-11-14] MEDS: CEFAZOLIN SOD 1 GM/NS 50ML 50 ML IV SCH ×3 (00:05→16:54)
--- NOTE | 2018-11-14 00:08 | NUR ---
PT RESTING COMFORTABLY IN BED AT THIS TIME. PT STATES SHE HAS NO PAIN. CALL LIGHT IS IN REACH AND FAMILY IS AT BEDSIDE.
[2018-11-14 05:02] LABS: BASOPHILS % 0.3 % (0.0-1.0); EOSINOPHILS # (AUTO) 0.3 (0.0-0.4); EOSINOPHILS % 2.8 % (0.0-6.0); HEMATOCRIT 24.2 % (34.2-44.1); HEMOGLOBIN 7.8 g/dL (12.0-16.0); LYMPHOCYTES # (AUTO) 0.8 (1.0-3.2); LYMPHOCYTES % 7.7 % (18.0-39.1); MEAN CORPUSCULAR HGB CONC 32.2 g/dL (31-35); MEAN CORPUSCULAR VOLUME 83.7 fL (81-99); MONOCYTES # (AUTO) 0.8 (0.2-0.8); MONOCYTES % 7.5 % (4.4-11.3); NEUTROPHILS # (AUTO) 8.5 (2.1-6.9); NEUTROPHILS % 79.4 % (38.7-80.0); PLATELET COUNT 330 x10e3/uL (140-360); RED BLOOD COUNT 2.89 x10e6/uL (3.6-5.1); RED CELL DISTRIBUTION WIDTH 15.9 % (11.7-14.4)
[2018-11-14 05:16] LABS: ANION GAP 16.1 mmol/L (8-16); CALCIUM 8.2 mg/dL (8.4-10.2); CREATININE, SERUM 1.36 mg/dL (0.57-1.11); POTASSIUM 4.1 mmol/L (3.5-5.1)
[2018-11-14 05:17] LABS: MAGNESIUM 1.1 MG/DL (1.3-2.1)
[2018-11-14] MEDS: HYDROCODONE/APAP 7.5MG-325MG 1 EA TAB PO SCH ×4 (06:00→17:16)
--- NOTE | 2018-11-14 06:24 | NUR ---
DR. STONER CALLED AT THIS TIME, VOICEMAIL LEFT NOTIFYING DR OF CRITICAL MAGNESIUM LEVEL.
[2018-11-14] MEDS: INSULIN REGULAR, HUMAN 100 UNIT/1 ML 3ML VIAL SQ SCH ×4 (07:30→20:32)
--- NOTE | 2018-11-14 07:30 | NUR ---
Received patient this morning and alert and responsive, call light within reach, bed in low locked position, will monitor.
[2018-11-14] MEDS: OXYBUTYNIN CHLORIDE 5 MG TAB PO SCH (09:06)
[2018-11-14] MEDS: IRON-VITAMIN-MINERAL CAPSULE PO SCH (09:06)
[2018-11-14] MEDS: ASPIRIN 81 MG CHEW TAB PO SCH (09:06)
[2018-11-14] MEDS: PANTOPRAZOLE SOD 40 MG TABEC PO SCH (09:07)
[2018-11-14] MEDS: MAGNESIUM SULFATE 2GM/50ML 50 ML IV SCH ×2 (09:51→14:00)
[2018-11-14] MEDS ORDERED: MAGNESIUM SULFATE 2GM/50ML IV SCH (10:00)
--- NOTE | 2018-11-14 11:28 | NUR ---
Rounds by attending and orders in place for Mag replacement and Iron infusions. Tolerated mag, OOB and sitting on chair, pains well managed, confusion clearing, will monitor.
--- NOTE | 2018-11-14 11:55 | NUR ---
Rounds by Dr. Dobbins and orders for one time Lasix 40mg as patient noted with audible wheezing.
[2018-11-14] MEDS ORDERED: FUROSEMIDE INJ 10 MG/ML 4 ML VIAL IV NR (12:00)
[2018-11-14] MEDS: IRON SUCROSE 100 MG in SODIUM CHLORIDE 0.9% 100 ML 100 ML IV SCH (12:03)
--- NOTE | 2018-11-14 15:15 | NUR ---
Visit made by the Spiritual Care Department Pastoral Visitor, Michael Vides. PV provided pastoral presence, jainism literature, hospitality, and supportive listening. Pastoral Visitor informed pt/family of the scope of Traveling Secretary Services and availability. ZACK MAJANO Dirt Supervisor Spiritual Care Department O: [phone] Pager: [phone] ([phone] number calling from)
--- NOTE | 2018-11-14 18:02 | NUR ---
Lasix was administered and patient has had frequent urination as assisted to the bathroom, wheezing resolving. Tolerated 2 bags of Mg and Venofer infusion, abx IV and VSS, pains well managed, OOB to chair, family in the room with patient, appears to have a better mental clarity with delirium beginning to resolve, will monitor.
--- NOTE | 2018-11-14 19:15 | NUR ---
Pt sitting at side of bed at this time. Pt denies pain. Bed is in low locked position with call light in reach. Will continue to monitor.
[2018-11-15] VITALS (8 sets, daily range): BP systolic 106–140; BP diastolic 59–65
[2018-11-15] MEDS: CEFAZOLIN SOD 1 GM/NS 50ML 50 ML IV SCH ×3 (00:05→16:47)
[2018-11-15 05:34] LABS: BASOPHILS % 0.4 % (0.0-1.0); EOSINOPHILS # (AUTO) 0.3 (0.0-0.4); EOSINOPHILS % 3.5 % (0.0-6.0); HEMATOCRIT 23.8 % (34.2-44.1); HEMOGLOBIN 7.9 g/dL (12.0-16.0); LYMPHOCYTES % 11.9 % (18.0-39.1); MEAN CORPUSCULAR HEMOGLOBIN 27.3 pg (28-32); MEAN CORPUSCULAR HGB CONC 33.2 g/dL (31-35); MEAN CORPUSCULAR VOLUME 82.4 fL (81-99); MONOCYTES # (AUTO) 0.6 (0.2-0.8); MONOCYTES % 7.5 % (4.4-11.3); NEUTROPHILS # (AUTO) 6.2 (2.1-6.9); NEUTROPHILS % 74.8 % (38.7-80.0); PLATELET COUNT 393 x10e3/uL (140-360); RED BLOOD COUNT 2.89 x10e6/uL (3.6-5.1); RED CELL DISTRIBUTION WIDTH 15.9 % (11.7-14.4)
[2018-11-15 05:45] LABS: ANION GAP 17.2 mmol/L (8-16); CALCIUM 8.5 mg/dL (8.4-10.2); CREATININE, SERUM 0.99 mg/dL (0.57-1.11); POTASSIUM 4.2 mmol/L (3.5-5.1)
[2018-11-15] MEDS: HYDROCODONE/APAP 7.5MG-325MG 1 EA TAB PO SCH ×4 (06:00→18:00)
[2018-11-15 06:19] LABS: MAGNESIUM 2.3 MG/DL (1.3-2.1); PHOSPHORUS 3.6 MG/DL (2.3-4.7)
[2018-11-15] MEDS: INSULIN REGULAR, HUMAN 100 UNIT/1 ML 3ML VIAL SQ SCH ×4 (08:42→21:00)
[2018-11-15] MEDS: ASPIRIN 81 MG CHEW TAB PO SCH (08:42)
[2018-11-15] MEDS: OXYBUTYNIN CHLORIDE 5 MG TAB PO SCH (08:42)
[2018-11-15] MEDS: PANTOPRAZOLE SOD 40 MG TABEC PO SCH (08:42)
[2018-11-15] MEDS: IRON SUCROSE 100 MG in SODIUM CHLORIDE 0.9% 100 ML 100 ML IV SCH (09:18)
[2018-11-15 10:32] LABS: BAND NEUTROPHILS % (MANUAL) 1 %; EOSINOPHILS % (MANUAL) 6 % (0-7); LYMPHOCYTES % (MANUAL) 4 % (19-48); METAMYELOCYTES % (MANUAL) 1 % (0-0); MONOCYTES % (MANUAL) 3 % (3.4-9.0); NEUTROPHILS % (MANUAL) 81 % (40-74); PROMYELOCYTES % (MANUAL) 2 % (0-0)
[2018-11-15 10:33] LABS: PLATELET ESTIMATE SLIGHTLY INCREASED; PLATELET MORPHOLOGY COMMENT FEW LARGE; RBC MORPHOLOGY COMMENT NORMAL
--- NOTE | 2018-11-15 18:16 | NUR ---
Patient lying in bed. AAO x 3. No c/o pain. No signs of respiratory distress. Fall precautions implemented. Patient instructed to call for assistance when needed. Call light within reach.
[2018-11-15] MEDS: FUROSEMIDE INJ 10 MG/ML 2 ML VIAL IV SCH (22:30)
[2018-11-16 00:28] VITALS: BP 113/55
[2018-11-16] MEDS: CEFAZOLIN SOD 1 GM/NS 50ML 50 ML IV SCH (00:45)
[2018-11-16 04:48] VITALS: BP 154/67
[2018-11-16] MEDS: HYDROCODONE/APAP 7.5MG-325MG 1 EA TAB PO SCH ×3 (05:32→11:38)
--- NOTE | 2018-11-16 07:02 | NUR ---
Walking rounds done . Shift report given to oncoming nurse.
[2018-11-16 07:35] VITALS: BP 129/60
--- NOTE | 2018-11-16 07:45 | NUR ---
ASSESSMENT: Spiritual concern Direct Care Supervisor requested by family. No family present during visit. Pt reflecting on rosa and family. Pt identifies as Advent. Pt considering renewing activity in [employer]. Intervention: Provided empathic listening. Facilitated discussion about rosa. Provided information on how to reach dispatch manager, if desired. Outcome: Pt expressed appreciation for visit. No need to follow at this time. ZACK MAJANO Direct Care Supervisor Spiritual Care Department O: [phone] Pager: [phone] ([phone] number calling from)
[2018-11-16] MEDS: INSULIN REGULAR, HUMAN 100 UNIT/1 ML 3ML VIAL SQ SCH ×2 (07:48→11:30)
[2018-11-16 07:56] VITALS: BP 129/60
[2018-11-16] MEDS ORDERED: CEFAZOLIN SOD 1 GM/NS 50ML 50 ML IV SCH (08:00)
[2018-11-16] MEDS: PANTOPRAZOLE SOD 40 MG TABEC PO SCH (09:30)
[2018-11-16] MEDS: FUROSEMIDE INJ 10 MG/ML 2 ML VIAL IV SCH (09:30)
[2018-11-16] MEDS: IRON-VITAMIN-MINERAL CAPSULE PO SCH (09:30)
[2018-11-16] MEDS: ASPIRIN 81 MG CHEW TAB PO SCH (09:30)
[2018-11-16] MEDS: IRON SUCROSE 100 MG in SODIUM CHLORIDE 0.9% 100 ML 100 ML IV SCH (09:43)
--- NOTE | 2018-11-16 10:53 | Discharge Summary ---
PRIMARY CARE PHYSICIAN: Dr. Logan Gan. CONSULTANTS: 1. Dr. Rajta Solomon. 2. Dr. Claudy Diamond. FINAL DIAGNOSES: 1. Sepsis without shock. 2. Bibasilar pneumonia. 3. Urinary tract infection associated with pyelonephritis associated with Escherichia coli sensitive to multiple antibiotics. 4. Gram-negative cathy Escherichia coli bacteremia. 5. Chronic anemia. Fecal occult blood negative. SUMMARY: The patient is a 78-year-old female, who came in with fever and leukocytosis. The patient came into the hospital, workup including multiple tests done. WBC was 15,700. Chemistry panel, she was dehydrated with acute renal injury, BUN and creatinine of 52 and 2.1. The patient had multiple imaging tests done including renal ultrasound, abdominal and pelvic CT, chest CT. Workup found that the patient does have bibasilar infiltrate consistent with pneumonia. Fecal occult blood is negative. The patient was hyponatremic, that has now resolved. The patient is stable. Acute renal failure resolved. The patient's blood culture and urine culture grew out E coli. The patient is stable now. She is comfortable, she is ambulatory, she has tolerated all her diet. WBC is 8.3, hemoglobin 7.9. The patient is status post 300 mg of iron infusion. Hematocrit of 23.8. BUN is 25, creatinine 0.9, glucose is 143. The patient is stable. She will be discharged home today with Keflex 500 mg three times a day for 10 days. She will follow up with Dr. Gan next week. The patient is stable, discharged home. MD ANTOINE Alvarez/PARVIN /[id number]
[2018-11-16] MEDS ORDERED: KEFLEX500 MG PO (11:15)
[2018-11-16 12:00] VITALS: BP 156/69
--- NOTE | 2018-11-16 12:16 | NUR ---
IMM letter delivered and reminded pt of Medicare Rights. She verbalized understanding. Stated she ready to go home. Signed copy placed in chart. Copy to pt.
[2018-11-16] MEDS ORDERED: OXYBUTYNIN CHLORIDE 5 MG TAB PO SCH (21:00)
[2018-11-16] MEDS ORDERED: OXYBUTYNIN CHLORIDE XL 5 MG TAB PO SCH (21:00)
[2018-11-17 15:27] LABS: FOLATE 8.2 ng/mL (7.0-15.4)
== END 2018-11-16 13:06 | disposition home or self-care (01) | DRG 871 ==
LOC: ER 17:28 → ERHOLD 21:19 → MED/SURG2 23:00
PROVIDERS: ADMIT Internal Medicine; ATTEND Internal Medicine
DX: A41.51 Sepsis due to Escherichia coli [E. coli] (principal); N17.0 Acute kidney failure with tubular necrosis; N12 Tubulo-interstitial nephritis, not specified as acute or chronic; E87.1 Hypo-osmolality and hyponatremia; E87.2 Acidosis; E86.0 Dehydration; D50.9 Iron deficiency anemia, unspecified; R53.1 Weakness; E11.22 Type 2 diabetes mellitus with diabetic chronic kidney disease; I12.9 Hypertensive chronic kidney disease with stage 1 through stage 4 chronic kidney disease, or unspecified chronic kidney disease; N18.9 Chronic kidney disease, unspecified; E78.5 Hyperlipidemia, unspecified; E66.9 Obesity, unspecified; Z68.32 Body mass index [BMI] 32.0-32.9, adult; E11.40 Type 2 diabetes mellitus with diabetic neuropathy, unspecified; N28.1 Cyst of kidney, acquired; Z88.1 Allergy status to other antibiotic agents; Z79.82 Long term (current) use of aspirin; Z79.84 Long term (current) use of oral hypoglycemic drugs
CPT/HCPCS: 36415; 71045; 71250; 74176; 76770; 80048; 80053; 81001; 82270; 82550; 82553; 82570; 82607; 82728; 82746; 82947; 82948; 83540; 83605; 83735; 83935; 84100; 84156; 84295; 84300; 84443; 84466; 84484; 84520; 85025; 87040; 87071; 87086; 87186; 87205; 93005; 96361; 97139; 99285; J0456; J0690; J0696; J1756; J1817; J1940; J3475; J7030; J7050